=== PATIENT | female | born 1985 | race Caucasian/White ===

== ENCOUNTER 2017-01-10 14:24 | Inpatient (IN) | payer BC ==
[2017-01-10 16:29] LABS: Hematocrit 39 % (35-47); Hemoglobin 12.9 g/dl (12.0-16.0); Mean Corpuscular HGB Conc 33 g/dl (31-36); Mean Corpuscular Hemoglobin 30 pg (27-31); Mean Corpuscular Volume 91 fL (80-97); Mean Platelet Volume 8 um3 (7.4-10.4); Red Blood Count 4.27 10^6/ul (4.0-5.4); Red Cell Distribution Width 14 % (10.5-15); White Blood Count 18.3 10^3/ul (3.5-10.8)
[2017-01-10] MEDS ORDERED: Ibuprofen TAB* 600 MG PO PRN (19:58)
[2017-01-10] MEDS ORDERED: Glycerin ADULT SUPP PR PRN (19:58)
[2017-01-10] MEDS ORDERED: Dibucaine 1% 28.35 GM TUBE PR PRN (19:58)
[2017-01-10] MEDS ORDERED: Witch Hazel PAD* JAR TOPICAL PRN (19:58)
[2017-01-10] MEDS ORDERED: Acetaminophen TAB* 325 MG PO PRN (19:58)
[2017-01-10] MEDS ORDERED: Simethicone CHEW TAB* 80 MG PO SCH (21:00)
[2017-01-11 08:18] LABS: Hematocrit 35 % (35-47); Hemoglobin 11.8 g/dl (12.0-16.0); Mean Corpuscular HGB Conc 34 g/dl (31-36); Mean Corpuscular Hemoglobin 31 pg (27-31); Mean Corpuscular Volume 91 fL (80-97); Mean Platelet Volume 8 um3 (7.4-10.4); Red Blood Count 3.83 10^6/ul (4.0-5.4); Red Cell Distribution Width 14 % (10.5-15)
[2017-01-11 08:30] LABS: Add Diff/Slide Review? Slide Review Added; Comments Flag Yes
[2017-01-11] MEDS: Docusate CAP* 100 MG PO SCH ×3 (08:35→20:30)
[2017-01-11] MEDS: Enoxaparin(*) 80 MG/0.8 ML SYR SUBCUT SCH ×2 (08:35→20:32)
[2017-01-11] MEDS ORDERED: Ferrous Gluconate TAB* 324 MG TAB PO SCH (09:00)
[2017-01-11 18:22] LABS: EGFR African American 112.7 (>60); EGFR Non-African American 87.6 (>60)
[2017-01-12] MEDS: Enoxaparin(*) 80 MG/0.8 ML SYR SUBCUT SCH (08:24)
[2017-01-12] MEDS: Docusate CAP* 100 MG PO SCH (08:24)
[2017-01-12 08:36] VITALS: BP 139/76
== END 2017-01-12 11:05 | disposition home or self-care (01) | DRG 560 ==
LOC: MCHOBOUT 14:24 → MCHOB 14:52
PROVIDERS: ADMIT Obstetrics & Gynecology; ATTEND Obstetrics & Gynecology
PROC: 10E0XZZ Delivery of Products of Conception, External Approach (ICD-10-PCS; principal; 2017-01-10)
DX: O60.23X1 Term delivery with preterm labor, third trimester, fetus 1 (principal); O24.424 Gestational diabetes mellitus in childbirth, insulin controlled; O77.0 Labor and delivery complicated by meconium in amniotic fluid; Z3A.38 38 weeks gestation of pregnancy; Z37.0 Single live birth
CPT/HCPCS: 36415; 82565; 85025; 86850; 86900; 86901; A9270-GY; J1650